=== PATIENT | male | born 1960 | race Caucasian/White ===

== ENCOUNTER 2020-09-20 17:11 | Emergency (ER) | payer BC ==
[~2020-09-20 17:11] MED LIST: ASPIRIN EC81 MG PO
[2020-09-20 18:10] LABS: HEMOGLOBIN 14.9 gm/dl (14.0-17.5); RED BLOOD COUNT 4.75 M/UL (4.20-5.50); WHITE BLOOD COUNT 6.2 K/UL (4.5-11.0)
[2020-09-20 18:33] LABS: BUN/CREATININE RATIO 23 (0-10)
== END 2020-09-21 01:15 | disposition home or self-care (01) ==
LOC: ER1 17:11
PROVIDERS: Physician Assistant
DX: I10 Essential (primary) hypertension (principal); E11.9 Type 2 diabetes mellitus without complications
CPT/HCPCS: 80053; 82550; 82553; 83874; 84484; 85025; 99283